=== PATIENT | male | born 1975 | race Caucasian/White ===

== ENCOUNTER 2017-06-16 17:21 | Observation (INO) | payer BC ==
[2017-06-16] VITALS (9 sets, daily range): BP systolic 115–158; BP diastolic 81–97; PULSE 73–87; RESP 16–18; TEMP 97–97.9; O2SAT 94–99
[~2017-06-16] VITALS: Ht 177.8 cm; Wt 111.7 kg
[2017-06-16] MEDS ORDERED: SODIUM CHLORIDE 0.9% FLUSH 10 ML FLUSH IVF PRN (17:45)
[2017-06-16 17:56] LABS: AUTOMATED NEUTROPHIL # 5.3 TH/MM3 (1.8-7.7); BASOPHIL % 0.3 % (0.0-2.0); EOSINOPHIL # 0.2 TH/MM3 (0-0.4); EOSINOPHIL % 2.7 % (0.0-4.0); HEMATOCRIT 49.8 % (39.0-51.0); LYMPH % 25.9 % (9.0-44.0); LYMPHOCYTE # 2.2 TH/MM3 (1.0-4.8); MEAN CELL VOLUME 87.2 FL (80.0-100.0); MEAN CORPUSCULAR HEMOGLOBIN 29.6 PG (27.0-34.0); MEAN PLATELET VOLUME 9.2 FL (7.0-11.0); MONO % 9.1 % (0.0-8.0); MONOCYTE # 0.8 TH/MM3 (0-0.9); PLATELET COUNT 228 TH/MM3 (150-450); RED BLOOD COUNT 5.72 MIL/MM3 (4.50-5.90); RED CELL DISTRIBUTION WIDTH 12.5 % (11.6-17.2); WHITE BLOOD COUNT 8.5 TH/MM3 (4.0-11.0)
--- NOTE | 2017-06-16 18:01 | PD ---
HPI Chief Complaint: Respiratory Symptoms Time Seen by Provider: 17:42 Travel History International Travel<30 days: No Contact w/Intl Traveler<30days: No Traveled to known affect area: No History of Present Illness HPI 42yo M presented to the ED for L shoulder pain and SOB. Pt states that he has had L shoulder discomfort all day, and started having SOB after eating lunch at [email or web address]. Pt states that as he was driving home from lunch, he felt disoriented, saw spots in his vision and became SOB. He then pulled over and had his start driving; the episode only last for several minutes but his shoulder pain has persisted. Pt rates his pain as a 4-5/10 and radiates down his left arm and into his anterior chest. He is a track repair worker. Pt has no past medical history and takes no medications. Pt has a negative cardiac family history. Pt denies any nausea, vomiting, abdominal pain, palpitations, numbness or weakness. Modifying Factors: None Associated Signs & Symptoms: Left shoulder pain, shortness of breath Risk Factors: None PFSH Past Medical History Medical History: Denies Significant Hx Diminished Hearing: No Tetanus Vaccination: < 5 Years Influenza Vaccination: No ?: Not Past Surgical History Other Surgery: Yes (umbilical hernia repair) Social History Alcohol Use: No Tobacco Use: No Substance Use: No Allergies-Medications (Allergen,Severity, Reaction): Coded Allergies: No Known Allergies (Unverified , 06/16/17) Review of Systems Except as stated in HPI: all other systems reviewed are Neg Physical Exam Narrative GENERAL: 42yo M who is well developed and well nourished. Alert and oriented x3. SKIN: Warm and dry. HEAD: Atraumatic. Normocephalic. NECK: Trachea midline. No JVD. Supple. CARDIOVASCULAR: Regular rate and rhythm. No murmurs or gallops. Peripheral pulses equal and strong. RESPIRATORY: No accessory muscle use. Clear to auscultation. Breath sounds equal bilaterally. GASTROINTESTINAL: Abdomen soft, non-tender, nondistended. Hepatic and splenic margins not palpable. MUSCULOSKELETAL: Extremities without clubbing, cyanosis, or edema. No obvious deformities. Full ROM in bilateral UE. NEUROLOGICAL: Awake and alert. No obvious cranial nerve deficits. Motor grossly within normal limits. Normal speech. PSYCHIATRIC: Appropriate mood and affect; insight and judgment normal. Data Data Last Documented VS Vital Signs Date Time Temp Pulse Resp B/P (MAP) Pulse Ox O2 Delivery O2 Flow Rate FiO2 06/16/17 19:02 87 18 145/84 (104) 95 Room Air 06/16/17 17:26 97.9 Orders Orders Ckmb (Isoenzyme) Profile (06/16/17 17:42) Complete Blood Count With Diff (06/16/17 17:42) Comprehensive Metabolic Panel (06/16/17 17:42) D-Dimer (06/16/17 17:42) Magnesium (Mg) (06/16/17 17:42) Prothrombin Time / Inr (Pt) (06/16/17 17:42) Act Partial Throm Time (Ptt) (06/16/17 17:42) Troponin I (06/16/17 17:42) Lipase (06/16/17 17:42) Chest, Single Ap (06/16/17 17:42) Ecg Monitoring (06/16/17 17:42) Bilateral Bp Monitoring (06/16/17 17:42) Iv Access Insert/Monitor (06/16/17 17:42) Oximetry (06/16/17 17:42) Oxygen Administration (06/16/17 17:42) Sodium Chloride 0.9% Flush (Ns Flush) (06/16/17 17:45) CKMB (06/16/17 17:45) CKMB% (06/16/17 17:45) Labs Laboratory Tests Test 06/16/17 17:45 White Blood Count 8.5 TH/MM3 Red Blood Count 5.72 MIL/MM3 Hemoglobin 17.0 GM/DL Hematocrit 49.8 % Mean Corpuscular Volume 87.2 FL Mean Corpuscular Hemoglobin 29.6 PG Mean Corpuscular Hemoglobin Concent 34.0 % Red Cell Distribution Width 12.5 % Platelet Count 228 TH/MM3 Mean Platelet Volume 9.2 FL Neutrophils (%) (Auto) 62.0 % Lymphocytes (%) (Auto) 25.9 % Monocytes (%) (Auto) 9.1 % Eosinophils (%) (Auto) 2.7 % Basophils (%) (Auto) 0.3 % Neutrophils # (Auto) 5.3 TH/MM3 Lymphocytes # (Auto) 2.2 TH/MM3 Monocytes # (Auto) 0.8 TH/MM3 Eosinophils # (Auto) 0.2 TH/MM3 Basophils # (Auto) 0.0 TH/MM3 CBC Comment DIFF FINAL Differential Comment Prothrombin Time 10.4 SEC Prothromb Time International Ratio 1.0 RATIO Activated Partial Thromboplast Time 26.1 SEC D-Dimer Quantitative (PE/DVT) LESS THAN 0.19 MG/L FEU Blood Urea Nitrogen 20 MG/DL Creatinine 1.00 MG/DL Random Glucose 87 MG/DL Total Protein 8.2 GM/DL Albumin 4.1 GM/DL Calcium Level 8.4 MG/DL Magnesium Level 2.3 MG/DL Alkaline Phosphatase 68 U/L Aspartate Amino Transf (AST/SGOT) 40 U/L Alanine Aminotransferase (ALT/SGPT) 83 U/L Total Bilirubin 0.5 MG/DL Sodium Level 140 MEQ/L Potassium Level 3.7 MEQ/L Chloride Level 105 MEQ/L Carbon Dioxide Level 25.5 MEQ/L Anion Gap 10 MEQ/L Estimat Glomerular Filtration Rate 81 ML/MIN Total Creatine Kinase 216 U/L Creatine Kinase MB 3.4 NG/ML Troponin I LESS THAN 0.02 NG/ML Lipase 172 U/L MDM Medical Decision Making Medical Screen Exam Complete: Yes Emergency Medical Condition: Yes Medical Record Reviewed: Yes Interpretation(s) EKG shows NSR, no ST elevation or depression, and no arrhythmias. No significant T-wave inversions. Last 24 hours Impressions Chest X-Ray 06/16/17 0102 Signed Impressions: Service Date/Time: Friday, June 16, 2017 17:51 - CONCLUSION: No evidence of acute cardiopulmonary disease. Forrest Zapata MD Laboratory Tests Test 06/16/17 17:45 Monocytes (%) (Auto) 9.1 % (0.0-8.0) Blood Urea Nitrogen 20 MG/DL (7-18) Calcium Level 8.4 MG/DL (8.5-10.1) Aspartate Amino Transf (AST/SGOT) 40 U/L (15-37) Alanine Aminotransferase (ALT/SGPT) 83 U/L (12-78) Estimat Glomerular Filtration Rate 81 ML/MIN (>89) Troponin I LESS THAN 0.02 NG/ML Differential Diagnosis ACS versus PE versus pneumonia versus anxiety attack versus musculoskeletal Narrative Course Cardiac enzymes, EKG, chest x-ray was unremarkable. D-dimer is negative. At this point, considering his risk factors, age, my plan would be to admit the patient to chest pain center for further evaluation. Symptoms are worrisome for an atypical chest pain or anginal equivalent. Diagnosis Primary Impression: Atypical chest pain Admitting Information Admitting Physician Requests: it Conchis Xavier MD Jun 16, 2017 18:01
--- NOTE | 2017-06-16 18:08 | RADRPT ---
EXAM DATE/TIME: 06/16/2017 17:51 [facility] COMPARISON: No previous studies available for comparison. INDICATIONS : Onset of left upper chest pain MEDICAL HISTORY : None. SURGICAL HISTORY : None. ENCOUNTER: Initial ACUITY: 1 day PAIN SCORE: 5/10 LOCATION: Left upper chest FINDINGS: A single view of the chest demonstrates the lungs to be symmetrically aerated without evidence of mas s, infiltrate or effusion. The cardiomediastinal contours are unremarkable. Osseous structures are intact. CONCLUSION: No evidence of acute cardiopulmonary disease. Forrest Zapata MD on June 16, 2017 at 18:05 Board Certified Radiologist. This report was verified electronically.
[2017-06-16 18:14] LABS: CALCIUM 8.4 MG/DL (8.5-10.1)
[2017-06-16 18:15] LABS: ALBUMIN 4.1 GM/DL (3.4-5.0); BICARBONATE 25.5 MEQ/L (21.0-32.0); BLOOD UREA NITROGEN 20 MG/DL (7-18); GLUCOSE,RANDOM 87 MG/DL (74-106); LIPASE 172 U/L (73-393); MAGNESIUM 2.3 MG/DL (1.5-2.5)
[2017-06-16 18:18] LABS: ALT (GPT) 83 U/L (12-78); AST (GOT) 40 U/L (15-37); GLOMERULAR FILTRATION RATE 81 ML/MIN (>89)
[2017-06-16 18:19] LABS: TOTAL BILIRUBIN ADULT 0.5 MG/DL (0.2-1.0); TOTAL PROTEIN 8.2 GM/DL (6.4-8.2)
[2017-06-16 18:21] LABS: ALKALINE PHOSPHATASE 68 U/L (45-117)
[2017-06-16 18:23] LABS: TROPONIN I LESS THAN 0.02 NG/ML (0.02-0.05)
[2017-06-16 18:38] LABS: PROTHROMBIN TIME - PATIENT 10.4 SEC (9.8-11.6)
[2017-06-16 18:55] LABS: D-DIMER LESS THAN 0.19 MG/L FEU (0.00-0.50)
[2017-06-16 19:34] LABS: CHLORIDE 105 MEQ/L (98-107); SODIUM (NA) 140 MEQ/L (136-145)
[2017-06-16] MEDS ORDERED: SODIUM CHLORIDE 0.9% FLUSH 10 ML FLUSH IV FLUSH PRN (20:00)
[2017-06-16] MEDS ORDERED: ASPIRIN 325 MG TAB PO ONE (20:00)
[2017-06-16] MEDS: SODIUM CHLORIDE 0.9% FLUSH 10 ML FLUSH IV FLUSH SCH (20:11)
[2017-06-16 20:44] LABS: TROPONIN I LESS THAN 0.02 NG/ML (0.02-0.05)
[2017-06-16 22:48] LABS: TROPONIN I LESS THAN 0.02 NG/ML (0.02-0.05)
[2017-06-17 04:29] VITALS: BP 120/68; PULSE 72
[2017-06-17 07:25] VITALS: PULSE 80
[2017-06-17 08:00] VITALS: BP 114/82; PULSE 75; RESP 15; TEMP 97.3; O2SAT 96
[2017-06-17 08:35] VITALS: O2SAT 97
[2017-06-17] MEDS: SODIUM CHLORIDE 0.9% FLUSH 10 ML FLUSH IV FLUSH SCH (08:41)
--- NOTE | 2017-06-17 08:44 | HHI.HP ---
[facility] Primary Care Physician No Primary Care Physician Admission Diagnosis Atypical chest pain Diagnoses: Chief Complaint: Left shoulder pain Travel History International Travel<30 Days: No Contact w/Intl Traveler <30 Da: No Traveled to Known Affected Are: No History of Present Illness 42-year-old male patient with no known medical history who presented to the ED with complaints of chest pain and left shoulder pain. Patient states that yesterday he was complaining of left shoulder and neck pain all day with associated shortness of breath. He states that the pain radiated to his left chest with complaints of pain feeling that all in nature and does not remember any particular known causes. Patient rated the pain a 5/10 at its worse. Denies any associated nausea or diaphoresis. The patient states it almost "feels like a pulled muscle". Denies any cardiovascular history. Does not take any medications. Denies any recent illness including fever, chills, headache, ab pain, n/v/d or dysuria. At the time of assessment pain has diminished to a 1/10 and still located in his left neck and shoulder area. Serial tropnins flat. CXR negative. Will obtain shoulder x-ray. Review of Systems Constitutional: DENIES: Fever, Chills Eyes: DENIES: Blurred vision, Diplopia Respiratory: COMPLAINS OF: Shortness of breath, DENIES: Cough, Sputum production Cardiovascular: COMPLAINS OF: Chest pain, DENIES: Palpitations Musculoskeletal: DENIES: Joint pain Hematologic/lymphatic: DENIES: Bruising Immunologic/allergic: DENIES: Eczema Psychiatric: DENIES: Anxiety Except as stated in HPI: all other systems reviewed are Neg Past Family Social History Past Medical History No known medical history. Past Surgical History Umbilical hernia repair Reported Medications Denies Allergies: Coded Allergies: No Known Allergies (Unverified , 06/16/17) Active Ordered Medications Current Medications Medications (Trade) Dose Ordered Sig/Venancio Route Start Time Stop Time Status Last Admin (NS Flush) 2 ml UNSCH PRN IVF 06/16/17 17:45 (NS Flush) 2 ml UNSCH PRN IV FLUSH 06/16/17 20:00 (NS Flush) 2 ml BID IV FLUSH 06/16/17 21:00 06/17/17 08:41 (Naprosyn) 500 mg ONCE ONCE PO 06/17/17 09:30 06/17/17 09:31 UNV Family History Family medical history significant for diabetes. Maternal grandfather had history of [place]. Social History Denies any current or previous tobacco use. Denies any alcohol use. Denies any illicit drug use. Physical Exam Vital Signs Vital Signs Date Time Temp Pulse Resp B/P (MAP) Pulse Ox O2 Delivery O2 Flow Rate FiO2 06/17/17 08:00 97.3 75 15 114/82 (93) 96 06/17/17 04:29 72 120/68 (85) 06/16/17 23:40 98 21 06/16/17 23:28 97.0 76 18 131/86 (101) 97 06/16/17 21:36 97.9 73 16 132/81 (98) 96 06/16/17 20:51 83 18 115/94 (101) 95 06/16/17 20:03 79 18 148/96 (113) 94 Room Air 06/16/17 20:00 83 06/16/17 19:02 87 18 145/84 (104) 95 Room Air 06/16/17 19:02 87 18 95 Room Air 06/16/17 17:54 86 20 96 Room Air 06/16/17 17:53 96 Room Air 06/16/17 17:53 96 Room Air 06/16/17 17:26 97.9 83 16 158/97 (117) 99 Physical Exam GENERAL: This is a well-nourished, well-developed patient, in no apparent distress. SKIN: No rashes, ecchymoses or lesions. Warm and dry. HEAD: Atraumatic. Normocephalic. EYES: Pupils equal round and reactive. Extraocular motions intact. No scleral icterus. No injection or drainage. ENT: Nose without bleeding, purulent drainage or septal hematoma. Throat without erythema, tonsillar hypertrophy or exudate. Uvula midline. Airway patent. NECK: Trachea midline. No JVD. Supple. Reproducible left sided neck pain to palpation. CARDIOVASCULAR: Regular rate and rhythm without murmurs, gallops, or rubs. No reproducible chest pain. RESPIRATORY: Clear to auscultation. Breath sounds equal bilaterally. No wheezes , rales, or rhonchi. GASTROINTESTINAL: Abdomen soft, non-tender, nondistended. MUSCULOSKELETAL: Extremities without clubbing, cyanosis, or edema. No joint tenderness, effusion, or edema noted. NEUROLOGICAL: Awake and alert. Cranial nerves II through XII intact. Motor and sensory grossly within normal limits. Five out of 5 muscle strength in all muscle groups. Normal speech. Laboratory Laboratory Tests Test 06/16/17 17:45 06/16/17 20:00 06/16/17 22:20 White Blood Count 8.5 Red Blood Count 5.72 Hemoglobin 17.0 Hematocrit 49.8 Mean Corpuscular Volume 87.2 Mean Corpuscular Hemoglobin 29.6 Mean Corpuscular Hemoglobin Concent 34.0 Red Cell Distribution Width 12.5 Platelet Count 228 Mean Platelet Volume 9.2 Neutrophils (%) (Auto) 62.0 Lymphocytes (%) (Auto) 25.9 Monocytes (%) (Auto) 9.1 Eosinophils (%) (Auto) 2.7 Basophils (%) (Auto) 0.3 Neutrophils # (Auto) 5.3 Lymphocytes # (Auto) 2.2 Monocytes # (Auto) 0.8 Eosinophils # (Auto) 0.2 Basophils # (Auto) 0.0 CBC Comment DIFF FINAL Differential Comment Prothrombin Time 10.4 Prothromb Time International Ratio 1.0 Activated Partial Thromboplast Time 26.1 D-Dimer Quantitative (PE/DVT) LESS THAN 0.19 Blood Urea Nitrogen 20 Creatinine 1.00 Random Glucose 87 Total Protein 8.2 Albumin 4.1 Calcium Level 8.4 Magnesium Level 2.3 Alkaline Phosphatase 68 Aspartate Amino Transf (AST/SGOT) 40 Alanine Aminotransferase (ALT/SGPT) 83 Total Bilirubin 0.5 Sodium Level 140 Potassium Level 3.7 Chloride Level 105 Carbon Dioxide Level 25.5 Anion Gap 10 Estimat Glomerular Filtration Rate 81 Total Creatine Kinase 216 183 174 Creatine Kinase MB 3.4 2.8 2.4 Troponin I LESS THAN 0.02 LESS THAN 0.02 LESS THAN 0.02 Lipase 172 Result Diagram: 06/16/17 17406/16/17 174 Imaging Last Impressions Chest X-Ray 06/16/17 1742 Signed Impressions: Service Date/Time: Friday, June 16, 2017 17:51 - CONCLUSION: No evidence of acute cardiopulmonary disease. Forrest Zapata MD Septic Shock Reassessment Septic shock perfusion: reassessment completed Caprini VTE Risk Assessment Caprini VTE Risk Assessment: No/Low Risk (score <= 1) Caprini Risk Assessment Model Point Value = 1 Point Value = 2 Point Value = 3 Point Value = 5 Age 41-60 Minor surgery BMI > 25 kg/m2 Swollen legs Varicose veins or History of unexplained or recurrent spontaneous Oral contraceptives or hormone replacement Sepsis (< 1 month) Serious lung disease, including pneumonia (< 1 month) Abnormal pulmonary function Acute myocardial infarction Congestive heart failure (< 1 month) History of inflammatory bowel disease Medical patient at bed rest Age 61-74 Arthroscopic surgery Major open surgery (> 45 min) Laparoscopic surgery (> 45 min) Malignancy Confined to bed (> 72 hours) Immobilizing plaster cast Central venous access Age >= 75 History of VTE Family history of VTE Factor V Leiden Prothrombin [id number] Lupus anticoagulant Anticardiolipin antibodies Elevated serum homocysteine Heparin-induced thrombocytopenia Other congenital or acquired thrombophilia Stroke (< 1 month) Elective arthroplasty Hip, pelvis, or leg fracture Acute spinal cord injury (< 1 month) Prophylaxis Regimen Total Risk Factor Score Risk Level Prophylaxis Regimen 0-1 Low Early ambulation 2 Moderate Order ONE of the following: *Sequential Compression Device (SCD) *Heparin 5000 units SQ BID 3-4 Higher Order ONE of the following medications: *Heparin 5000 units SQ TID *Enoxaparin/Lovenox 40 mg SQ daily (WT < 150 kg, CrCl > 30 mL/min) *Enoxaparin/Lovenox 30 mg SQ daily (WT < 150 kg, CrCl > 10-29 mL/min) *Enoxaparin/Lovenox 30 mg SQ BID (WT < 150 kg, CrCl > 30 mL/min) AND/OR *Sequential Compression Device (SCD) 5 or more Highest Order ONE of the following medications: *Heparin 5000 units SQ TID (Preferred with Epidurals) *Enoxaparin/Lovenox 40 mg SQ daily (WT < 150 kg, CrCl > 30 mL/min) *Enoxaparin/Lovenox 30 mg SQ daily (WT < 150 kg, CrCl > 10-29 mL/min) *Enoxaparin/Lovenox 30 mg SQ BID (WT < 150 kg, CrCl > 30 mL/min) AND *Sequential Compression Device (SCD) Assessment and Plan Problem List: (1) Atypical chest pain ICD Code: R07.89 - Other chest pain Status: Acute Plan: Patient has been admitted to the chest pain center. Serial EKGs and serial troponins have been ordered for ruling out ACS purposes. Serial troponins flat. EKG reviewed showing sinus rhythm with controlled heart rate, no ST changes to indicate ischemia. Aspirin given an EGD. Chest x-ray reviewed showing no acute cardiopulmonary disease. Check lipid panel. CBC and BMP reviewed, essentially unremarkable. Cardiac telemetry bed overnight, no acute arrhythmias Patient still complains of left shoulder and neck pain. Will obtain x-ray. Follow. Naproxen 1. Patient will undergo a cardiac treadmill stress test, to rule out any further ischemia. Further treatment plan will depend on results. Follow. Patient is stable at this time and agreeable to the plan Assessment and Plan Patient underwent a cardiac treadmill stress test, images were sent over to clamshell operator etl consultant, no ischemia noted. Chest pain has resolved. Patient encouraged to follow-up with PCP upon discharge. The patient educated that if chest pain were to return to return to the ED. Patient understands plan. Discussed Condition With Patient had a relatively uneventful hospitalization. He was admitted secondary to left shoulder pain that started yesterday morning. Patient stated that he then didn't fill well. He couldn't describe what he meant by not feeling well. He denies any chest pain, palpitation, shortness of breathing, lightheadedness dizziness. He stated that he kept something about his left shoulder and thought that it might be heart attack so went to emergency department. Patient stated that he does have a history of shoulder pain because he moves his arms a lot due to his job. Shoulder pain has improved during his hospitalization but continues. Deny nausea, vomiting or diaphoresis. During his hospitalization labs were obtained including cardiac enzymes were negative. He also had a treadmill test which showed no ischemia. Patient also asked for an x-ray of the shoulder which was unremarkable. On clinical exam GENERAL: in NAD SKIN: Warm and dry. HEAD: Normocephalic. EYES: No scleral icterus. No injection or drainage. NECK: Supple, trachea midline. No JVD or lymphadenopathy. CARDIOVASCULAR: Regular rate and rhythm without murmurs, gallops, or rubs. RESPIRATORY: Breath sounds equal bilaterally. No accessory muscle use. GASTROINTESTINAL: Abdomen soft, non-tender, nondistended. MUSCULOSKELETAL: Left shoulder full ROM but pain. + right neck muscle spasm. 5 out of 5 upper extremity strength. Sensation is intact. BACK: Nontender without obvious deformity. No CVA tenderness. A/P Acute shoulder pain most likely secondary to muscle spasms of the neck -This has been intermittent. Recommend muscle relaxant and heating pad. -Avoid movements that worsens pain. -Shoulder pain very unlikely cardiac in nature. Atypical. Cardiac enzymes negative and treadmill stress test negative for any ischemia. -Patient was discharged home with follow-up with his primary care physician within one week. The exam, history, and the medical decision-making described in the above note were completed with the assistance of the mid-level provider. I reviewed and agree with the findings presented. I attest that I had a [id number] encounter with the patient on the same day, and personally performed and documented my assessment and findings in the medical record. Hannah Ortez Jun 17, 2017 08:44 Liss Raines MD Jun 17, 2017 14:35
[2017-06-17] MEDS ORDERED: NAPROXEN 500 MG TAB PO ONE (09:30)
--- NOTE | 2017-06-17 10:00 | HHI.DCPOC ---
Discharge Care Plan Diagnosis: (1) Atypical chest pain Your Health Problems Are: Chest Pain Goals to Promote Your Health * To prevent worsening of your condition and complications * To maintain your health at the optimal level Directions to Meet Your Goals Take your medications as prescribed Follow your dietary instruction Follow activity as directed Keep your appointments as scheduled Take your immunizations and boosters as scheduled If your symptoms worsen call your PCP, if no PCP go to Urgent Care Center or Emergency Room Smoking is Dangerous to Your Health. Avoid second hand smoke Call the 24-hour hour crisis hotline for domestic abuse at Hannah Ortez Jun 17, 2017 10:00
--- NOTE | 2017-06-17 11:43 | RADRPT ---
EXAM DATE/TIME: 06/17/2017 11:16 [facility] COMPARISON: No previous studies available for comparison. INDICATIONS : Left shoulder pain post fall. MEDICAL HISTORY : None. SURGICAL HISTORY : None. ENCOUNTER: Initial ACUITY: 4 - 6 months PAIN SCORE: 2/10 LOCATION: Left anterior shoulder FINDINGS: Multiple view examination of the left shoulder demonstrates no evidence of fracture or dislocation. The glenohumeral and acromioclavicular joints are maintained. There is normal range of motion betwee n internal and external rotation. Bony mineralization is normal. CONCLUSION: Unremarkable examination of the left shoulder. Johann Houser MD on June 17, 2017 at 11:39 Board Certified Radiologist. This report was verified electronically.
[2017-06-17 14:36] LABS: CHOLESTEROL/ HDL RATIO 4.29 RATIO; HDL CHOLESTEROL 41.2 MG/DL (40.0-60.0)
--- NOTE | 2017-06-17 15:13 | EKG ---
Date Performed: 06/16/2017 Time Performed: 22:22:27 PTAGE: 42 years EKG: Sinus rhythm BORDERLINE ECG PREVIOUS TRACING : 06/16/2017 17.35 Since previous tracing, no significant change noted DOCTOR: Dickson Reed Interpretating Date/Time 06/17/2017 15:11:57
--- NOTE | 2017-06-17 15:19 | EKG ---
Date Performed: 06/16/2017 Time Performed: 17:35:16 PTAGE: 42 years EKG: Sinus rhythm NORMAL ECG INTERPRETATION BASED ON A DEFAULT AGE OF 38 YEARS NO PREVIOUS TRACING DOCTOR: Dickson Reed Interpretating Date/Time 06/17/2017 15:19:03
--- NOTE | 2017-06-17 17:15 | TR ---
Date Performed: 06/17/2017 Time Performed: 09:06:55 DOCTOR: Nora Russell DRUG LIST: CLINICAL HISTORY: CHEST PAIN REASON FOR TEST: Chest pain REASON FOR ENDING: OBSERVATION: CONCLUSION: Gerard protocol performed test stopped sec to reaching target heart rate. Excellent e xercise tolerance. No reproducible chest pain. Left shoulder stiffness. Good BP response. Recovery qu ick and unremarkable.Maximum MT=092 Target HR Zilcjtxx=869.0% Maximum TL=787/82 Total Exercise Time=9 :40 COMMENTS:
== END 2017-06-17 12:41 | disposition home or self-care (01) ==
LOC: PHED 17:21 → PHEDA 19:46 → PH3B 21:06
PROVIDERS: ADMIT Family Medicine; ATTEND Family Medicine
DX: R07.89 Other chest pain (principal); M25.512 Pain in left shoulder; M54.2 Cervicalgia; R06.02 Shortness of breath; H53.9 Unspecified visual disturbance
CPT/HCPCS: 71045; 73030; 80053; 80061; 82550; 82552; 83690; 83735; 84484; 85025; 85379; 85610; 85730; 93005; 93017; 99285; G0378